=== PATIENT | female | born 1980 | race Caucasian/White ===

== ENCOUNTER 2020-06-03 15:00 | Outpatient (RCR) | payer OTHER, SELFPAY ==
--- NOTE | 2020-05-07 16:58 | HP.PTEVAL ---
Patient's Visit Information JAUN YI is a 39 year old F referred to Physical Therapy by KIMBERLI MOREAU with a diagnosis of R/O STROKE,BRACHIAL PLEXITIS. Date of Evaluation: 05/07/20 Physical Therapist: Brant Gainse, PT, Cert MDT, OCS - Visit Plan Frequency: 2x /Week Duration: 4 Weeks Plan: PATIENT PLANS TO SEE OT FOR RUE. PT INTERVENTION PROGRESSIVE BALANCE TRAINING ,GAIT TRAINING,RLE STRENGTHENING FUNCTIONAL STRENGTHENING,ENDURANCE PROGRAM, - Subjective This 39 y/o female presents to physical therapy R/O STROKE AND BRACHIAL PLEXITIS. Patient was driving in car noticed pain and tingling in arm/fingers. Patient symptosm worse as day goes on loosing feeling and unable to move right arm. Patient went ER then next day [facility] . Patient seen neurologist at [facility]. Admiitted to [facility] had several MRI/CATSCAN/US /BLOOD WORK.Patient symptoms not conclusive etiology unknown. Patient at this point treating with parsonage sahni syndrome. Patient admiited APR 28 and d/c 05/02. Patient states balance is unsteady leans to right. Patient walks very slow. Patient has parathesia/tingling in arms . Patient denies dizziness/nausea. Patient has PARSON and UT pain. Patient sleeping sleeping is affects. Patient has no falls. Patient has no weakness in legs. Patient condiion affects ADL's ,housework tasks. Patient has right arm in sling . Patient pland to see OT.MEDS: PREDISONE/GABEBETIN/ATIVAN/TRAMADOL. Patient has lupus ,blood work platlets >. SOCIAL: . VOCATION: home - Pain Right Shoulder Pain Intensity (Out of 10): 8 Pain Intensity Range: 10 - Objective POSTURE: mild foward posture ,rounded shoulders,right sling is intact. NEURO: c/o parathesia/tingling ,right arm ,light touch diminished ,reflexes L3-4,L4-5,L5-S1 1/3. PALPATION: tender UT. GAIT: reciprocal gait very slow ame decrease stance time RLE mild unsteady. BALANCE: fair+. MMT: R- quads/hams/hip flexion /ankle DF 4-/5 ,hip abd 3+/5,L 4/5 quads/hams/ankle 4/5,hip hlexion/abd 3+/4. FLEXABLITY: hams min tight - Special Tests C/S Radiculapathy - Right Upper limb tension test: Positive C/S Radiculapathy - Left Spurlings: Negative - Balance Scores Functional Gait Assessment Score: 9 % Disability: 70.0000 CATSIB Score (Max score 120 seconds): 25 - Goals Goal 1:: Patient to be I with HEP Goal Time Frame: 4-6 Weeks Goal 2:: Patient to normailze gait pattern Goal Time Frame: 4-6 Weeks Goal 3:: Patient to increase strength of quads/hams /hip ankle 4/5 RLE to improve gait and function. Goal Time Frame: 4-6 Weeks Goal 4:: Patient improve CATSIB by 5-10 points or > to improve balance with gait Goal Time Frame: 4-6 Weeks Goal 5:: Patient to improve functional gait assessment score by 5-10 points to improve gait. Goal Time Frame: 4-6 Weeks - Rehabilitation Potential Physical Therapy Diagnosis: This patient has right side weakness RUE and RLE BUT RIGHT is painfull unable with functional movement uses sling for comfort. Patient has some weakness in right legs and scored poor with functional gait assessment and CATSIB thus benifit from skilled PT adresss these impairments and PT will work on RUE. Rehabilitation Potential: Good - Anticipated Interventions Patient/Client Instruction: Educate patient on: Condition, Plan of Care For the Purpose of:: To decrease pain, To increase ROM, To improve ability to perform ADL's, To increase tolerance to activity/condition/position, To improve performance and independence with ADL's, To improve ability of physical actions for home/community/work/leisure, To improve health of tissue, To decrease soft tissue restriction, To improve endurance, To improve balance, To improve safety with gait, To reduce risk of recurrence, To improve ability to perform tasks related to life management Therapeutic Exercise to Include: Strength training, Endurance training, Balance training, Gait and locomotor training, Active ROM Comment: RLE For the Purpose of:: To decrease pain, To improve muscle performance and motor function, To improve ability to perform ADL's, To increase tolerance to activity/condition/position, To improve ability of physical actions for home/community/work/leisure, To improve gait and locomotor functions, To improve endurance, To improve balance, To improve safety with gait, To assume or resume ADL's, To improve ability to perform tasks related to life management Thank you for the opportunity to evaluate your patient. For Medicare and Medicare HMO plans, please review the plan of care and approve it. It will need to be FAXED BACK to us at [phone] for Medicare purposes. For Medicare only, by signing this I certify the plan of care. Please let me know if there are questions or concerns regarding this plan of care. Physician Signature: Date:
--- NOTE | 2020-05-09 10:57 | HP.OTEVAL ---
Patient's Visit Information JAUN YI is a 39 year old F, referred to Occupational Therapy by KIMBERLI MOREAU, with a diagnosis of right arm weakness. Date of Evaluation: 05/09/20 Occupational Therapist: Deb Stanley, OTR/Alexandra, CHT - Subjective this 39 year old female was seen for Ot eval with dx of Bracchial plexitis. pt states she started having piain in her right shoulder (was driving home from son's baseball game) - pt states pain in her right shoulder was worse and tingling was unable to move her hand- pt is seen PT for balance. 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 Family supportive. pt to have EMG on and returns to [facility] on . - ADLs Dressing: Bra, Pants, Socks, Shoes Fasteners: Tie shoes, [place] Eating: Bring food to mouth, Cut food, Drink from glass Bathing: Handle washcloth & soap, Wash hair, Squeeze shampoo bottle Toileting: Manage clothing Kitchen: Peel fruits & vegetables, Open bottle caps, Take dish out of oven, Load/unload welding machine operator friction Household: Sweep/mop, Laundry - Pain right side 8 Pain Intensity Range: 7, 8 - ROM ROM Comments: right UE NO AROM. PROM limited with shoulder to 70*. right Elbow, forearm, wrist and digits PROM WNL - but pts pain level increases to 9/10 - Strength Board Winder: right Uable left 65# Lateral Pinch: right Unable left 16# Tripod Pinch: right unable left 15# - Sensation Sensation Comments: tingling of right side of body - Quick DASH-Disab of Arm,Shoulder& Hand Quick DASH Score: 91.6650 - Goals Goal:: strength goal will be added based on pts AROM return Goal:: pt will demo full PROM of right shoulder flex and abd in 4 weeks. pt will demo AROM of right shoulder to 160* to increaser pts ind. with ADL and IADLs by d/c. pt will demo AROM forearm sup/pron 70* to increase use of right UE with ADLs and IADLS by d/c. pt will demo full AROM of wrist ext/fex of 65/60 to increase pts ind.with use of right UE by d/c Goal:: pt will report pain no greater than 2/10 with AROM of right UE use with ADLs or IADLS. - Rehabilitation General Assessment: pt demo with with limited AROM of right UE - therapist noted some muscle initiation with biceps/tricps, and shoulder flex- pt limited with use of right UE pain limiting PROM and pt dependent with ADLs and IADLs. pt would benefit from skilled OT services 2x week for 6 weeks to assist pt in return of using right UE for ADLs and IADLs. Today therapist ed. pt on PROM of right UE. pt and spouse demo understanding. Rehabilitation Potential: Good - Anticipated Interventions A/AAROM/PROM, Strengthening, Modalities, Ergonomic Education, Fine Motor Coord/Augustus, Caregiver Training, Home Program - Visit Plan Frequency: 2x /Week Duration: 6 Weeks TEXT: Thank you for the opportunity to evaluate your patient. For Medicare and Medicare HMO plans, please review the plan of care and approve it. It will need to be FAXED BACK to us at [phone] for Medicare purposes. Please let me know if there are questions or concerns regarding this plan of care. Physician Signature: Date:
--- NOTE | 2020-09-23 15:00 | HP.OT.NRP ---
JAUN YI was seen in my office for initial evaluation on 05/09/20. The following Plan of Care was established for this patient: Initial Frequency: 2x /Week Initial Duration: 6 Weeks Plan: cont to increase pts shoulder PROM- and increase pts AROM as return Anticipated Interventions: A/AAROM/PROM, Strengthening, Modalities, Ergonomic Education, Fine Motor Coord/Augustus, Caregiver Training, Home Program This patient was last seen in our office 06/03/20. Pertinent comments regarding their Occupational therapy will appear below: pt seen 7 OT visits and due to high pain level pt had difficulty jabari. therapy. pt has not returned and due to time lapse in services pt d/c at this time. At this point I will be discontinuing this patient from occupational therapy. I would be happy to see this patient again in the future if found appropriate by the physician. Thank you! eDb Stanley, OTR/L, CHT
== END 2020-06-03 19:00 | disposition home or self-care (01) ==
LOC: OT 15:00
PROVIDERS: PCP Family Medicine
DX: G54.0 Brachial plexus disorders (principal); D50.9 Iron deficiency anemia, unspecified; D47.3 Essential (hemorrhagic) thrombocythemia; N92.4 Excessive bleeding in the premenopausal period; M62.81 Muscle weakness (generalized); E66.9 Obesity, unspecified; Z68.33 Body mass index [BMI] 33.0-33.9, adult
CPT/HCPCS: 97110; 97140; 97162; 97166; 97530